=== PATIENT | female | born 1985 | race African-American/Black ===

== ENCOUNTER 2018-02-06 20:48 | Emergency (ER) | payer MEDICAID, OTHER ==
[~2018-02-06] VITALS: Ht 162.6 cm; Wt 99.8 kg
[2018-02-06 21:32] VITALS: BP 132/83
[2018-02-07] MEDS ORDERED: methylPREDNISolone SOD SUCC 125 MG/2 ML VL IM ONE (02:45)
[2018-02-07] MEDS ORDERED: KETOROLAC TROMETH 60MG/2ML VIAL IM ONE (02:45)
== END 2018-02-07 04:04 | disposition home or self-care (01) ==
LOC: ER 20:48
DX: R51 Headache (principal)
CPT/HCPCS: 70450; 96372; 99284; J1885; J2930